=== PATIENT | male | born 1990 | race Caucasian/White ===

== ENCOUNTER 2023-10-25 12:50 | Emergency (ER) | payer OTHER, SELFPAY ==
[2023-10-25 12:50] VITALS: BP 108/63; PULSE 94; RESP 18; TEMP 36.1; O2SAT 98
[2023-10-25] MEDS: LIDOCAINE HCL 1% LOCAL INJ 10 ML VIAL 20 ML INFILTRATE (13:10)
[2023-10-25] MEDS: NEOMYCIN/POLYMYXIN/BACITRACIN OINTMENT PACKET 1 PACKET TOPICAL (13:35)
--- NOTE | 2023-10-25 13:38 | ED.WOUNDLAC ---
HPI - Wound/Laceration General Chief Complaint: Wound/Laceration Stated Complaint: left arm laceration Source: patient and family Mode of arrival: ambulatory Limitations: no limitations History of Present Illness HPI narrative: this is 33-year-old male who presents with laceration to his left forearm approximately 6cm in length and gaping after he was doing some metal work there was some metal shavings in the laceration site otherwise he could move his fingers no numbness or tingling currently no bleeding. Onset (ago): hour(s) Location: other Extremity Location: Left: forearm ( Gaping laceration 6cm) Place: home Patient tetanus UTD: Yes Context: accidental Related Data Allergies Allergy/AdvReac Type Severity Reaction Status Date / Time Bee stings Allergy Severe Uncoded 01/18/13 15:22 Bumble Bee Allergy Mild Uncoded 01/06/10 09:32 Review of Systems Review of Systems: All systems reviewed & are unremarkable except as noted in HPI and below PMFSH Past Medical History Medical History Patient denies medical problems Family History Family History Brother Hypertension Social History Social History Smoking status: Current some day smoker Exam Const: General: healthy appearing, no acute distress and alert Chest: Chest palpation & inspection: normal inspection of the chest Resp: Effort & Inspection: normal respiratory effort Auscultation: clear to auscultation bilaterally Cardio: Rate: regular rate Rhythm: regular rhythm Skin: Wounds: wounds noted Neuro: General: patient oriented x3, moves all extremities, no meningeal signs and no focal motor deficits Psych: Mental Status: mental status grossly normal Course Course Emergency Course: area was cleansed and metal shavings removed patient received lidocaine to numb up the area and 14 sutures were placed into his left forearm area is well approximated no blood loss patient tolerated procedure well. Triple antibiotic ointment was administered. Vital Signs Vital signs: Vital Signs Temperature 36.1 C L 10/25/23 12:50 Pulse Rate 94 10/25/23 12:50 Respiratory Rate 18 10/25/23 12:50 Blood Pressure 108/63 10/25/23 12:50 Pulse Oximetry 98 10/25/23 12:50 Oxygen Delivery Room Air 10/25/23 12:50 Temperature 36.1 C L 10/25/23 12:50 Pulse Rate 94 10/25/23 12:50 Respiratory Rate 18 10/25/23 12:50 Blood Pressure 108/63 10/25/23 12:50 Pulse Oximetry 98 10/25/23 12:50 Oxygen Delivery Room Air 10/25/23 12:50 Procedures Laceration Laceration 1: Date: 10/25/23 Time: 13:42 Site: upper extremity Side (If applicable): left Size (cm): 6 Description: linear Depth: simple, single layer Local Anesthetic: lidocaine 1% Amount of anesthesia used (mL): 15 Pre-repair: wound explored, irrigated, irrigated extensively and minor debridement ====== Skin Level ====== Skin layer closed with: vicryl Size (cm): 3-0 Number of sutures: 14 Technique: simple, interrupted ====== Subcutaneous Layer ====== ====== Muscle Layer ====== ====== Tendon Layer ====== Critical Care Time Critical Care Time Critical Care Time: No Discharge Plan Discharge Clinical Impression: Laceration Patient Disposition: Home, Self-Care Condition: Stable Instructions: Antibiotic Form, Laceration (ED), Care For Your Stitches (ED) Additional Instructions: Advised evaluation in 1 week for possible Suture removal with primary care physician. Follow-up/Referrals: UNKNOWN,DOCTOR [Primary Care Provider] - Time of Disposition: 13:43
[2023-10-25 13:43] VITALS: BP 126/81; PULSE 86; RESP 16; O2SAT 97
== END 2023-10-25 13:46 | disposition home or self-care (01) ==
PROVIDERS: Emergency Provider Emergency Medicine
DX: S51.822A Laceration with foreign body of left forearm, initial encounter (principal); W26.8XXA Contact with other sharp object(s), not elsewhere classified, initial encounter; F17.200 Nicotine dependence, unspecified, uncomplicated
CPT/HCPCS: 12002; 99282